=== PATIENT | male | born 1995 | race Hispanic/Latino ===

== ENCOUNTER 2023-05-04 11:11 | Emergency (ER) | payer OTHER ==
[2023-05-04] MEDS ORDERED: Boostrix 0.5 ML (Tdap) VIAL (>/=7 yrs of age) ONE (11:27)
[2023-05-04] MEDS ORDERED: Lidocaine 1% (PF) 30 ML VIAL ONE (11:55)
[2023-05-04] MEDS ORDERED: Bacitracin 1 PK ONE (12:14)
== END 2023-05-04 12:48 | disposition home or self-care (01) ==
LOC: NAV ERS 11:11
DX: S61.042A Puncture wound with foreign body of left thumb without damage to nail, initial encounter (principal); F17.210 Nicotine dependence, cigarettes, uncomplicated; Z23 Encounter for immunization; W45.8XXA Other foreign body or object entering through skin, initial encounter
CPT/HCPCS: 64450; 90471; 90715; J2001

== ENCOUNTER 2023-10-04 16:05 | Emergency (ER) | payer OTHER, SELFPAY ==
[2023-10-04] MEDS ORDERED: Tetracaine 0.5% PF 4 ML BOT ONE (16:21)
[2023-10-04] MEDS ORDERED: Fluorescein Opthalmic Strip ONE (16:21)
== END 2023-10-04 16:48 | disposition left against medical advice (07) ==
LOC: NAV ERS 16:05
DX: H18.822 Corneal disorder due to contact lens, left eye (principal); R00.0 Tachycardia, unspecified; F17.210 Nicotine dependence, cigarettes, uncomplicated
CPT/HCPCS: 99283

== ENCOUNTER 2024-04-13 00:42 | Emergency (ER) | payer SELFPAY ==
[2024-04-13] MEDS ORDERED: Acetaminophen 500 MG TAB ONE (03:24)
== END 2024-04-13 03:45 | disposition home or self-care (01) ==
LOC: NAV ERS 00:42
DX: S02.2XXA Fracture of nasal bones, initial encounter for closed fracture (principal); S01.511A Laceration without foreign body of lip, initial encounter; F10.129 Alcohol abuse with intoxication, unspecified; F17.210 Nicotine dependence, cigarettes, uncomplicated; Y04.0XXA Assault by unarmed brawl or fight, initial encounter
CPT/HCPCS: 70450; 70486; 72125